=== PATIENT | male | born 1975 | race African-American/Black ===

== ENCOUNTER 2024-04-10 02:08 | Emergency (ER) | payer MEDICAID ==
[~2024-04-10] VITALS: Ht 182.9 cm; Wt 120.0 kg
[2024-04-10 02:28] VITALS: O2SAT 98
[2024-04-10] MEDS: KETOROLAC 15MG/ML VIAL IM ONE (03:08)
[2024-04-10 03:34] LABS: CLARITY URINE TURBID (CLEAR); COLOR URINE YELLOW (YELLOW); GLUCOSE URINE 3+ (NEGATIVE); KETONES URINE NEGATIVE (NEGATIVE); LEUKOCYTE ESTERASE URINE NEGATIVE (NEGATIVE); NITRITE URINE NEGATIVE (NEGATIVE); OCCULT BLOOD URINE 1+ (NEGATIVE); PROTEIN URINE 2+ (NEGATIVE); SPECIFIC GRAVITY URINE 1.029 (1.005-1.030)
[2024-04-10 04:08] LABS: BASOPHILS % 0.6 % (0.0-2.0); EOSINOPHILS % 1.2 % (0.0-5.0); HEMATOCRIT. 36.3 % (42.0-52.0); LYMPHOCYTES % 20.9 % (20.0-50.0); MEAN CORPUSCULAR HEMOGLOBIN 29.2 pg (28.0-32.0); MEAN CORPUSCULAR HGB CONC 32.9 g/dL (31.0-37.0); MEAN CORPUSCULAR VOLUME 88.5 fL (80.0-94.0); MEAN PLATELET VOLUME 7.3 fl (7.4-10.4); MONOCYTES % 5.4 % (2.0-8.0); NEUTROPHILS % 71.9 % (40.0-76.0); PLATELET 561 x1000/uL (130-400); RED CELL DISTRIBUTION WIDTH 15.5 % (11.6-14.6); WHITE BLOOD COUNT 10.6 x1000/uL (4.5-11.0)
[2024-04-10 04:13] LABS: CHLORIDE 104 mEq/L (98-107); POTASSIUM 4.4 mEq/L (3.5-5.1); SODIUM 132 mEq/L (136-145)
[2024-04-10 04:14] LABS: CARBON DIOXIDE 23 mEq/L (21-32)
[2024-04-10 04:15] LABS: WBC URINE 0-2 /hpf (0-2)
[2024-04-10 04:15] LABS: CALCIUM 8.9 mg/dL (8.7-10.4)
[2024-04-10 04:16] LABS: BACTERIA URINE 1+; MUCUS URINE 1+ /lpf (NONE/TRACE); RBC URINE 0-2 /hpf (0-2); SQUAMOUS EPITHELIAL CELL URINE 1+ /lpf (RARE/1+); URIC ACID CRYSTALS URINE 4+ /lpf
[2024-04-10 04:19] LABS: CREATININE 1.4 mg/dL (0.6-1.3); GLUCOSE 384 mg/dL (70-105); UREA NITROGEN BLOOD 18 mg/dL (9-23)
[2024-04-10] MEDS: HYDROMORPHONE HCL/PF 2MG/ML CPJ IV ONE ×2 (05:24→08:47)
[2024-04-10] MEDS: SODIUM CHLORIDE 0.9% 1,000 ML IV ONE (05:25)
[2024-04-10] MEDS ORDERED: DOCU-138 MT (06:16)
[2024-04-10] MEDS ORDERED: HYDR-4001 MT (06:16)
[2024-04-10] MEDS: IOHEXOL-300 100 ML BOTTLE ONE (07:28)
[2024-04-10] MEDS: ONDANSETRON HCL 4MG/2ML INJ IV STA (07:30)
[2024-04-10 09:37] VITALS: BP 160/97; PULSE 89; RESP 18; TEMP 98.5
== END 2024-04-10 09:54 | disposition home or self-care (01) ==
LOC: ER 02:08
DX: R10.32 Left lower quadrant pain (principal); I10 Essential (primary) hypertension; E11.9 Type 2 diabetes mellitus without complications; J44.9 Chronic obstructive pulmonary disease, unspecified; Z86.73 Personal history of transient ischemic attack (TIA), and cerebral infarction without residual deficits
CPT/HCPCS: 80048; 81003; 83605; 85025; 36415; 74177; 96361; 96372; 96374; 96376; 99285; Q9967; J1885; J1170; J7030; Z7610